=== PATIENT | male | born 1995 | race Caucasian/White ===

== ENCOUNTER 2020-11-08 11:08 | Emergency (ER) | payer BC, MEDICAID, OTHER ==
[~2020-11-08] VITALS: Ht 172.7 cm; Wt 59.0 kg
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
--- NOTE | 2020-11-08 12:54 | NUR ---
Back from CT
--- NOTE | 2020-11-08 15:00 | NUR ---
Patient discharged to home in stable condition with father. Written and verbal after care instructions given. Patient and his father verbalizes understanding of instructions. Stressed follow up or return to ER for worsening s/s.
== END 2020-11-08 15:09 | disposition home or self-care (01) ==
LOC: ER 11:08
DX: S92.252A Displaced fracture of navicular [scaphoid] of left foot, initial encounter for closed fracture (principal); V18.0XXA Pedal cycle driver injured in noncollision transport accident in nontraffic accident, initial encounter; Y93.55 Activity, bike riding; Y92.89 Other specified places as the place of occurrence of the external cause
CPT/HCPCS: 73200; A4663